=== PATIENT | female | born 1955 | race Caucasian/White ===

== ENCOUNTER → 2017-04-09 | Outpatient (CLI) | payer OTHER ==
[~2017-04-09] MED LIST: ATV/1 PO; CLB200 PO; HYDR-5688 PO; METO50TA16 PO; OXYSR10 PO; SIMV20TA5 PO; WARF3TAB6 PO
--- NOTE | 2017-04-09 10:46 | DIAGNOSTIC IMAGING REPORT ---
RIGHT LOWER EXTREMITY VENOUS DOPPLER CLINICAL HISTORY: Right lower extremity pain and swelling. COMPARISON STUDY: Bilateral lower extremity venous Doppler January 19, 2014. TECHNIQUE: Sonography of the deep venous system of the right lower extremity was performed. Compression and augmentation were evaluated. FINDINGS: The right common femoral, superficial femoral and popliteal veins were compressible. Augmentation was normal. Flow was shown within the deep calf vessels. Note was made of a 9.5 x 2.8 x 4.1 cm right popliteal cystic abnormality. IMPRESSION: 1. No evidence of deep venous thrombus within the right lower extremity. 2. 9.5 x 2.8 x 4.1 cm suspected right popliteal cyst. Electronically signed by: Bethel Mcdermott M.D. 04/09/2017 10:44 AM Dictated Date/Time: 04/09/2017 10:43 AM
== END | disposition home or self-care (01) ==
LOC: C.ULTRBC 09:58
PROVIDERS: ATTEND Physician Assistant Medical
DX: M25.561 Pain in right knee (principal)